=== PATIENT | female | born 1950 | race Caucasian/White ===

== ENCOUNTER 2016-05-10 14:11 | Inpatient (IN) | payer MEDICARE, BC ==
[~2016-05-10] VITALS: Ht 167.6 cm; Wt 86.2 kg
[2016-05-10] VITALS (8 sets, daily range): BP systolic 108–146; BP diastolic 69–100
--- NOTE | ~2016-05-10 | CON ---
[place], [place] REPORT OF CONSULTATION NAME: [facility]SE RAMON [facility]EDERSEN [id number] UNIT #: [id number] ROOM: 424 DOCTOR: TONI NUNEZ MD BIRTHDATE: [birth year] DOS: 05/11/2016 HISTORY OF PRESENT ILLNESS: This is a 65-year-old -[place] woman with a history of atrial flutter. She had electrical cardioversion 3 times in all and was on amiodarone for a short time many years ago. She was taken off of warfarin and she had an embolic stroke and had a hemorrhage within the infarction and spent several weeks in [place] quite a long time ago, I had seen her in this hospital in 2010. At that time, she was admitted because of atrial flutter and rapid ventricular rate. She was electrically cardioverted at that time and was on Pradaxa 150 b.i.d. She had atrial flutter ablation about 6 years ago in [place] where she had been living and was kept on Pradaxa for couple of years and then was discontinued. She has had the spinning sensation on and off for quite sometime but on the day of this admission, she had intense spinning sensation and quite a bit of nausea, but did not sweat. She did not fall and a friend who is a nurse, checked her out and found her heart rate is rather fast. She came to the Emergency Department where an ECG demonstrated atrial flutter with a ventricular rate of 133 beats per minute. She was not aware of her heart beating irregularly or fast and said she has never felt this previously. There has not been any undue shortness of breath, exertional shortness of breath or orthopnea. No swelling of the lower extremities. She has not had any neurological symptoms other than the spinning sensation. She does not smoke nor does she drink alcoholic beverages and lives with her . HOME MEDICATIONS: Included aspirin 81 daily, atorvastatin 20 daily, Lamictal b.i.d., metformin 500 b.i.d., omeprazole 40 daily, sotalol 80 mg b.i.d. and levetiracetam 250 mg b.i.d. When she was admitted, she was found to have atrial flutter with a 2:1 AV conduction, rate 133 beats per minute. She was placed on Cardizem drip and a few hours ago, she developed asystole and that lasted 7.2 seconds. She felt lightheaded, but did not pass out. Once rhythm came back, she was found to be in sinus bradycardia and which she is in at this time. PHYSICAL EXAMINATION: GENERAL: This revealed the patient who is very pleasant, alert, oriented, normal complexion, no thyromegaly, finger clubbing. VITAL SIGNS: Pulse is 56, regular, blood pressure 118/75. NECK: Normal JVP. No murmurs are present. There is no rub. Good pedal pulses and no edema in the lower extremities. RESPIRATORY: Lungs are clear to percussion and auscultation. ABDOMEN: Supple, nontender. IMPRESSION: This patient has had atrial flutter on and off for over 10 years and has had 3 electrical cardioversions then atrial flutter ablation done about 6 years ago. Now, she had asymptomatic atrial flutter with the rapid ventricular rate i.e. 2:1 AV conduction. IV Cardizem had induced asystole, which was discontinued and she is now in sinus bradycardia. QT interval appears normal. [place], [place] REPORT OF CONSULTATION NAME: JOSE RAMON PEDERSEN UNIT #: [id number] ROOM: 424 DOCTOR: TONI NUNEZ MD BIRTHDATE: [birth year] RECOMMENDATIONS: I agree with discontinuing Cardizem altogether. If her heart rate speeds up, I would increase the dose of sotalol to 120 mg every 12 hours. Her ERUM score is high, namely age, hypertension, and diabetes; therefore, long-term use of Pradaxa 150 b.i.d. or equivalent is strongly recommended. I discussed my assessment and recommendations with the patient and her and daughter. TONI NUNEZ MD CM:CONSTR:REPORT OF CONSULTATION 43 05/12/16 0242 interface
--- NOTE | ~2016-05-10 | PR ---
[place], [place] PROGRESS NOTE [id number] UNIT #: [id number] ROOM: 424 DOCTOR: JULIANNA SAPP MD BIRTHDATE: [birth year] DOS: 05/12/2016 SUBJECTIVE: 24 hours events noted. Discussed with the nursing staff. The patient was seen by Dr. Carr yesterday. The patient's medications have been adjusted. She is staying in sinus rhythm. PHYSICAL EXAMINATION: VITAL SIGNS: Heart rate 57, blood pressure is 120/80. HEENT: Unremarkable. NECK: Supple, no JVD. LUNGS: Clear. HEART: Sounds are regular. ABDOMEN: Soft. NEUROLOGIC: Stable. LABORATORY DATA: Hemoglobin 13, hematocrit 25.5. Electrolytes are normal. Creatinine is 1.2. IMPRESSION: Paroxysmal atrial fibrillation, back into sinus rhythm. PLAN: Medications have been adjusted. Agree with anticoagulation because her CHADS score is high. The patient has been started on Pradaxa. Continue the sotalol as ordered. Monitor the QT interval regularly and we will follow up. JULIANNA SAPP MD CM:PNTRANS [id number] JULIANNA SAPP MD 05/12/16 2328 interface
[~2016-05-10 14:11] MED LIST: AVPAK LEVETIRA PO; DEXILANT60 MG PO; DIOVAN160 MG PO; LAMICTAL150 MG PO; LIPITOR20 MG PO; METFORMIN500 MG PO; PRADAXA150 MG PO
[2016-05-10] MEDS ORDERED: GLUCOPHAGE1000 MG PO (14:18)
[2016-05-10] MEDS ORDERED: SOTALOL80 MG PO (14:18)
[2016-05-10] MEDS ORDERED: LIPITOR20 MG PO (14:19)
[2016-05-10] MEDS ORDERED: ASPIRIN CHILDRE81 MG PO (14:19)
[2016-05-10] MEDS ORDERED: OMEPRAZOLE40 MG PO (14:19)
[2016-05-10 14:41] LABS: BASO % 0.4 % (0.0-1.0); EOS # 0.1 10*3/uL (0.0-0.4); EOS % 1.3 % (1.0-4.0); HEMATOCRIT 43.9 % (37.0-47.0); HEMOGLOBIN 14.3 g/dl (12.0-16.0); LYMPH # 1.9 10*3/uL (1.3-4.4); LYMPH % 22.8 % (27.0-41.0); MEAN CELL VOLUME 90.5 fl (81.0-99.0); MEAN CORPUSCULAR HGB 29.5 pg (27.0-31.0); MEAN CORPUSCULAR HGB CONC 32.6 g/dl (33.0-37.0); MEAN PLATELET VOLUME 9.5 fl (9.6-12.3); MONO # 0.4 10*3/uL (0.1-1.0); MONO % 4.9 % (3.0-9.0); NEUT # 5.8 10*3/uL (2.3-7.9); NEUT % 70.2 % (47.0-73.0); PLATELET COUNT AUTOMATED 279 10*3/uL (130-400); RED BLOOD COUNT 4.85 10*6/uL (4.10-5.10); WHITE BLOOD COUNT 8.2 10*3/uL (4.8-10.8)
[2016-05-10 14:50] LABS: PROTHROMBIN TIME 10.3 SECONDS (9.0-12.4)
[2016-05-10 14:58] LABS: ALBUMIN 3.9 gm/dl (3.1-4.5); BILIRUBIN, TOTAL 0.4 mg/dl (0.2-1.0); MAGNESIUM 2.1 mg/dL (1.5-2.1); POTASSIUM 4.4 mmol/L (3.5-5.1); TOTAL PROTEIN 7.9 gm/dL (6.4-8.2)
[2016-05-10 15:47] LABS: BILIRUBIN NEGATIVE (NEGATIVE); BLOOD NEGATIVE (NEGATIVE); CLARITY CLEAR (CLEAR); COLOR YELLOW (YELLOW); GLUCOSE NEGATIVE (NEGATIVE); KETONE NEGATIVE (NEGATIVE); LEUKO ESTERASE NEGATIVE (NEGATIVE); NITRITE NEGATIVE (NEGATIVE); PH 5.5 (5.0-9.0); PROTEIN TRACE (NEGATIVE); SPECIFIC GRAVITY 1.025 (1.005-1.030)
[2016-05-10 16:04] LABS: BACTERIA TRACE; EPITHELIAL CELLS 30-35; URINE REFLEX COMMENT NO (NO); WBC 0-2 wbc/hpf (0-5)
[2016-05-10 18:21] LABS: CPK 43 U/L (26-192)
[2016-05-10 18:23] LABS: CKMB < 0.5 ng/ml (0.5-3.6); TROPONIN I < 0.015 ng/ml (<0.045)
[2016-05-11] VITALS (8 sets, daily range): BP systolic 94–126; BP diastolic 60–75
[2016-05-11 00:57] LABS: CPK 41 U/L (26-192)
[2016-05-11 00:58] LABS: CKMB < 0.5 ng/ml (0.5-3.6); TROPONIN I < 0.015 ng/ml (<0.045)
[2016-05-11 06:31] LABS: BASO % 0.4 % (0.0-1.0); EOS # 0.2 10*3/uL (0.0-0.4); HEMATOCRIT 39.7 % (37.0-47.0); LYMPH # 2.1 10*3/uL (1.3-4.4); LYMPH % 27.6 % (27.0-41.0); MEAN CORPUSCULAR HGB 29.5 pg (27.0-31.0); MEAN CORPUSCULAR HGB CONC 32.7 g/dl (33.0-37.0); MEAN PLATELET VOLUME 9.3 fl (9.6-12.3); MONO # 0.6 10*3/uL (0.1-1.0); MONO % 7.5 % (3.0-9.0); NEUT # 4.7 10*3/uL (2.3-7.9); NEUT % 61.1 % (47.0-73.0); PLATELET COUNT AUTOMATED 250 10*3/uL (130-400); RED BLOOD COUNT 4.41 10*6/uL (4.10-5.10); RED CELL DISTRI WIDTH 13.1 % (0-14.5); WHITE BLOOD COUNT 7.7 10*3/uL (4.8-10.8)
[2016-05-11 06:57] LABS: ALBUMIN 3.4 gm/dl (3.1-4.5); BILIRUBIN, TOTAL 0.3 mg/dl (0.2-1.0); MAGNESIUM 2.2 mg/dL (1.5-2.1); PHOSPHOROUS 3.3 mg/dL (2.5-4.9); PROTHROMBIN TIME 10.4 SECONDS (9.0-12.4)
[2016-05-11 07:03] LABS: FREE T4 1.35 ng/dl (0.76-1.46); THYROID STIM HORMONE (HS) 2.24 uIU/ml (0.358-4.75); TOTAL PROTEIN 6.9 gm/dL (6.4-8.2)
[2016-05-11 07:08] LABS: CKMB 0.6 ng/ml (0.5-3.6); CPK 42 U/L (26-192)
[2016-05-11 07:14] LABS: HEMOGLOBIN A1c 6.3 % (4.8-5.6)
[2016-05-11 07:28] LABS: FOLIC ACID 21.5 ng/mL (>5.38)
[2016-05-11 07:31] LABS: TROPONIN I < 0.015 ng/ml (<0.045)
[2016-05-11 11:02] LABS: VITAMIN D, 25-HYDROXY 26.1 ng/mL (30-100)
[2016-05-12] VITALS: BP 125/81
[2016-05-12 08:00] VITALS: BP 141/62
[2016-05-12 12:00] VITALS: BP 136/85
[2016-05-12] MEDS ORDERED: PRADAXA150 MG PO (13:08)
[2016-05-12] MEDS ORDERED: D-1000 185 MG-11 TAB PO (13:08)
== END 2016-05-12 15:33 | disposition home or self-care (01) | DRG 308 ==
LOC: ED 14:11 → EDHOLD 15:25 → 4E 15:25
PROVIDERS: Internal Medicine; Nurse Practitioner Family
DX: I48.0 Paroxysmal atrial fibrillation (principal); N17.0 Acute kidney failure with tubular necrosis; I48.92 Unspecified atrial flutter; I10 Essential (primary) hypertension; E78.5 Hyperlipidemia, unspecified; K21.9 Gastro-esophageal reflux disease without esophagitis; E11.65 Type 2 diabetes mellitus with hyperglycemia; I34.0 Nonrheumatic mitral (valve) insufficiency; I07.1 Rheumatic tricuspid insufficiency; G40.909 Epilepsy, unspecified, not intractable, without status epilepticus; Z86.73 Personal history of transient ischemic attack (TIA), and cerebral infarction without residual deficits; Z86.718 Personal history of other venous thrombosis and embolism; Z90.49 Acquired absence of other specified parts of digestive tract; Z79.01 Long term (current) use of anticoagulants; Z98.51 Tubal ligation status; Z82.5 Family history of asthma and other chronic lower respiratory diseases; Z84.1 Family history of disorders of kidney and ureter; Z79.82 Long term (current) use of aspirin; Z79.84 Long term (current) use of oral hypoglycemic drugs; Z79.899 Other long term (current) drug therapy

== ENCOUNTER → 2016-05-19 | Outpatient (CLI) | payer BC ==
[~2016-05-19] MED LIST changes: +ASPIRIN CHILDRE81 MG PO; +D-1000 185 MG-11 TAB PO; +GLUCOPHAGE1000 MG PO; +OMEPRAZOLE40 MG PO; +SOTALOL80 MG PO
== END | disposition home or self-care (01) ==
LOC: MRI 10:26
DX: I48.91 Unspecified atrial fibrillation (principal); R56.9 Unspecified convulsions

== ENCOUNTER → 2016-06-09 | Outpatient (CLI) | payer BC ==
[2016-06-09 12:11] LABS: BASO % 0.5 % (0.0-1.0); EOS # 0.3 10*3/uL (0.0-0.4); EOS % 5.1 % (1.0-4.0); HEMATOCRIT 38.7 % (37.0-47.0); HEMOGLOBIN 12.7 g/dl (12.0-16.0); LYMPH % 34.4 % (27.0-41.0); MEAN CELL VOLUME 92.1 fl (81.0-99.0); MEAN CORPUSCULAR HGB 30.2 pg (27.0-31.0); MEAN CORPUSCULAR HGB CONC 32.8 g/dl (33.0-37.0); MEAN PLATELET VOLUME 9.9 fl (9.6-12.3); MONO # 0.5 10*3/uL (0.1-1.0); MONO % 7.6 % (3.0-9.0); NEUT # 3.1 10*3/uL (2.3-7.9); NEUT % 52.2 % (47.0-73.0); PLATELET COUNT AUTOMATED 206 10*3/uL (130-400); RED CELL DISTRI WIDTH 13.2 % (0-14.5); WHITE BLOOD COUNT 5.9 10*3/uL (4.8-10.8)
[2016-06-09 13:08] LABS: FOLIC ACID > 24.00 ng/mL (>5.38)
== END | disposition home or self-care (01) ==
LOC: LAB 11:41
PROVIDERS: Family Medicine
DX: G62.9 Polyneuropathy, unspecified (principal); R42 Dizziness and giddiness; Z72.89 Other problems related to lifestyle

== ENCOUNTER → 2016-06-16 | Outpatient (CLI) | payer BC | END | disposition home or self-care (01) | LOC: CP 11:00 | DX: R56.9 Unspecified convulsions (principal) ==

== ENCOUNTER 2016-12-16 23:29 | Emergency (ER) | payer BC ==
[~2016-12-16] VITALS: Wt 72.6 kg
[2016-12-17 01:17] LABS: BASO % 0.3 % (0.0-1.0); EOS # 0.1 10*3/uL (0.0-0.4); EOS % 0.8 % (1.0-4.0); HEMATOCRIT 40.5 % (37.0-47.0); HEMOGLOBIN 13.1 g/dl (12.0-16.0); LYMPH # 0.8 10*3/uL (1.3-4.4); LYMPH % 10.5 % (27.0-41.0); MEAN CELL VOLUME 91.4 fl (81.0-99.0); MEAN CORPUSCULAR HGB 29.6 pg (27.0-31.0); MEAN CORPUSCULAR HGB CONC 32.3 g/dl (33.0-37.0); MEAN PLATELET VOLUME 9.8 fl (9.6-12.3); MONO # 0.3 10*3/uL (0.1-1.0); MONO % 4.1 % (3.0-9.0); NEUT # 6.7 10*3/uL (2.3-7.9); NEUT % 83.9 % (47.0-73.0); PLATELET COUNT AUTOMATED 185 10*3/uL (130-400); RED BLOOD COUNT 4.43 10*6/uL (4.10-5.10); RED CELL DISTRI WIDTH 13.2 % (0-14.5)
[2016-12-17 01:26] LABS: INTERNATIONAL NORM RATIO 1.4 (2.0-3.5)
[2016-12-17 01:34] LABS: ALBUMIN 3.6 gm/dl (3.1-4.5); CREATININE 1.16 mg/dL (0.55-1.02); POTASSIUM 3.8 mmol/L (3.5-5.1); TOTAL PROTEIN 7.1 gm/dL (6.4-8.2)
[2016-12-17 01:41] LABS: TROPONIN I 0.24 ng/ml (<0.045)
== END 2016-12-17 04:59 | disposition short-term general hospital (02) ==
LOC: ED 23:29
PROVIDERS: Emergency Medicine Emergency Medical Services
DX: R41.82 Altered mental status, unspecified (principal); R42 Dizziness and giddiness; Z98.51 Tubal ligation status; Z90.49 Acquired absence of other specified parts of digestive tract; Z79.82 Long term (current) use of aspirin; Z79.899 Other long term (current) drug therapy; Z86.73 Personal history of transient ischemic attack (TIA), and cerebral infarction without residual deficits; Z95.0 Presence of cardiac pacemaker

== ENCOUNTER → 2017-06-04 | Outpatient (CLI) | payer BC | END | disposition home or self-care (01) | LOC: RAD 08:22 | DX: Z01.818 Encounter for other preprocedural examination (principal); I51.7 Cardiomegaly; N28.89 Other specified disorders of kidney and ureter; I10 Essential (primary) hypertension; E11.9 Type 2 diabetes mellitus without complications; Z95.5 Presence of coronary angioplasty implant and graft ==

== ENCOUNTER 2018-03-22 21:30 | Inpatient (IN) | payer MEDICARE, BC ==
[~2018-03-22] VITALS: Ht 167.6 cm; Wt 78.0 kg
--- NOTE | ~2018-03-22 | EKG ---
[place], [place] ELECTROCARDIOGRAM REPORT NAME: JOSE RAMON PEDERSEN UNIT #: [id number] ROOM: 402 DOCTOR: LING DRAFT REPORT BIRTHDATE: [birth year] [facility] Test Date: 2018-03-22 Test Time: 21:44:36 Pat Name: JOSE RAMON PEDERSEN Department: Room: 402 Gender: F Room Service Waiter/Waitress: Sheila Shafer : 1950 Requested By: JOSE BRITO Order Number: [id number] Reading MD: Sari Snider Measurements Intervals [place] Rate: 75 P: [place]: QRS: -67 QRSD: 168 T: 86 QT: 493 QTc: 551 Interpretive Statements Atrial flutter Ventricular-paced Baseline wander in lead(s) I,III,aVR,aVL,V1 Electronically Signed On 03-25-2018 12:40:06 PST by Sari Snider CM:EKGRPT:ELECTROCARDIOGRAM REPORT 1240 JOSE SALDIVAR DRAFT REPORT JOSE BRITO DO
--- NOTE | ~2018-03-22 | EKG ---
[place], [place] ELECTROCARDIOGRAM REPORT NAME: JOSE RAMON PEDERSEN UNIT #: [id number] ROOM: 402 DOCTOR: LING DRAFT REPORT BIRTHDATE: [birth year] [facility] Test Date: 2018-03-23 Test Time: 01:50:40 Pat Name: JOSE RAMON PEDERSEN Department: Room: 402 2 Gender: F Configuration Management Advisor: Felix Johnson : 1950 Requested By: ABA ISBELL Order Number: [id number] Reading MD: Sari Snider Measurements Intervals [place] Rate: 75 P: [place]: QRS: -76 QRSD: 170 T: 97 QT: 462 QTc: 517 Interpretive Statements Afib/flutter Ventricular-paced Electronically Signed On 03-25-2018 12:41:38 PST by Sari Snider CM:EKGRPT:ELECTROCARDIOGRAM REPORT 0150 1241 ABA ISBELL EPIPHANY DRAFT REPORT ABA ISBELL
--- NOTE | ~2018-03-22 | EKG ---
[place], [place] ELECTROCARDIOGRAM REPORT NAME: JOSE RAMON PEDERSEN UNIT #: [id number] ROOM: 402 DOCTOR: LING DRAFT REPORT BIRTHDATE: [birth year] [facility] Test Date: 2018-03-23 Test Time: 03:21:41 Pat Name: JOSE RAMON PEDERSEN Department: Room: 402 2 Gender: F Surgeon Partner: Sophy Bob : 1950 Requested By: ABA ISBELL Order Number: [id number] Reading MD: Sari Snider Measurements Intervals [place] Rate: 75 P: [place]: QRS: -72 QRSD: 174 T: 87 QT: 475 QTc: 531 Interpretive Statements Afib/flutter Ventricular-paced rhythm Electronically Signed On 03-25-2018 12:42:33 PST by Sari Snider CM:EKGRPT:ELECTROCARDIOGRAM REPORT 0321 1242 ABA DUBON DRAFT REPORT ABA ISBELL
--- NOTE | ~2018-03-22 | CON ---
[place], [place] REPORT OF CONSULTATION NAME: [facility]EN [id number] UNIT #: [id number] ROOM: 402 DOCTOR: TONI NUNEZ MD BIRTHDATE: [birth year] DOS: 03/24/2018 HISTORY OF PRESENT ILLNESS: This is a 68-year-old -French woman with a history of atrial flutter. She had electrical cardioversion done long time ago and while in [place], had atrial flutter ablation. Her anticoagulation was stopped a couple of years later and she eventually had an embolic stroke and I saw her here in 05/2016 and she was at that time in atrial flutter, anticoagulation was restarted. She had a pacemaker implanted by Dr. Araya a year or so ago because of I believe tachy-bradycardia. She has remained in atrial flutter. A long time ago, she had an echocardiogram in this hospital, which was read by Dr. Araya documenting an EF of about 45%. She also has chronic kidney disease with creatinine around 2 or so, DVT, GERD, hyperlipidemia, essential hypertension, iron deficiency anemia, seizure disorder, and has had a cholecystectomy and nephrectomy. She was admitted to the hospital because of shortness of breath of 2-3 days' duration along with fatigue and tiredness. She did not have any palpitations. She has never had palpitations even when her heart was beating very fast. She had no fever, chills, or cough. No chills. She was given a dose of furosemide on admission and she has improved. She no longer has shortness of breath. There had not been any chest pain or swelling of the lower extremities. HOME MEDICATIONS: Include apixaban/Eliquis 5 mg b.i.d., atorvastatin 20 daily, carvedilol 3.125 mg b.i.d., ferrous sulfate 325 daily, Lamictal 200 mg b.i.d., and losartan 25 mg daily. PHYSICAL EXAMINATION: GENERAL: This reveals a patient who is very pleasant, alert, and oriented. She is very comfortable. Her complexion is fine. She is not in any distress. VITAL SIGNS: Temperature is normal. Pulse is 75 and regular, blood pressure 129/81 and had been higher. NECK: JVP was normal with a negative AJR. No bruit in the neck. HEART: There is no cardiomegaly. Cardiac auscultation revealed grade 2/6 pansystolic murmur over the apex. EXTREMITIES: No edema at all in the lower extremities. Excellent pedal pulses. LUNGS: Clear to percussion and auscultation with excellent breath sounds. LABORATORY DATA: ECG showed atrial flutter with ventricular pacing. I reviewed the chest x-ray of admission. It did not demonstrate pulmonary edema. BUN is 37, creatinine 2.23, potassium 4.0, and hemoglobin 13 g/dL. An echocardiogram was done yesterday, which I read. It demonstrated an LV ejection fraction of 35%. Moderately dilated left atrium and mild to moderately dilated right atrium with moderate mitral regurgitation and moderate tricuspid regurgitation. Mild pulmonary hypertension was also present. IMPRESSION: This patient has a moderate cardiomyopathy, reason is not clear. [place], [place] REPORT OF CONSULTATION NAME: JOSE RAMON PEDERSEN UNIT #: [id number] ROOM: 402 DOCTOR: TONI NUNEZ MD BIRTHDATE: [birth year] She has never had a diagnostic heart catheterization to exclude coronary artery disease as a cause of this. There is no evidence of cardiac decompensation clinically or on chest x-ray. Increasing shortness of breath may have been from increase in heart rate. RECOMMENDATIONS: The patient's beta meghan needs to be increased as far as tolerated because of cardiomyopathy. If possible, a dose of losartan should also be increased while monitoring renal function. An echocardiogram needs to be repeated in about 3 months to reassess LV systolic function. If EF is below 35%, she probably will require an AICD implantation. I thank you on behalf of Dr. Araya for this consult. TONI NUNEZ MD CM:CONSTR:REPORT OF CONSULTATION 1213 04/01/18 0958 interface JULIANNA ARAYA MD
[~2018-03-22 21:30] MED LIST changes: +OMEPRAZOLE D/R20 MG PO; -OMEPRAZOLE40 MG PO
[2018-03-22 21:35] VITALS: BP 161/88
[2018-03-22 21:50] VITALS: BP 147/79
[2018-03-22 21:51] LABS: BASO % 0.5 % (0.0-1.0); EOS % 0.4 % (1.0-4.0); HEMOGLOBIN 12.7 g/dl (12.0-16.0); LYMPH # 1.7 10*3/uL (1.3-4.4); LYMPH % 22.4 % (27.0-41.0); MEAN CELL VOLUME 97.3 fl (81.0-99.0); MEAN CORPUSCULAR HGB 31.7 pg (27.0-31.0); MEAN CORPUSCULAR HGB CONC 32.6 g/dl (33.0-37.0); MEAN PLATELET VOLUME 10.1 fl (9.6-12.3); MONO # 0.6 10*3/uL (0.1-1.0); MONO % 8.2 % (3.0-9.0); NEUT # 5.1 10*3/uL (2.3-7.9); NEUT % 68.2 % (47.0-73.0); PLATELET COUNT AUTOMATED 186 10*3/uL (130-400); RED BLOOD COUNT 4.01 10*6/uL (4.10-5.10); RED CELL DISTRI WIDTH 14.9 % (0-14.5); WHITE BLOOD COUNT 7.5 10*3/uL (4.8-10.8)
[2018-03-22 21:59] LABS: ACT PARTIAL THROMBO TIME 26.6 SECONDS (20.8-31.5); INTERNATIONAL NORM RATIO 1.1 (2.0-3.5)
[2018-03-22] MEDS ORDERED: ELIQUIS5 M1 PO (22:06)
[2018-03-22] MEDS ORDERED: FEROSUL325 MG PO (22:06)
[2018-03-22] MEDS ORDERED: LOSARTAN POTASS25 M1 PO (22:06)
[2018-03-22 22:07] LABS: BILIRUBIN 1+ (NEGATIVE); BLOOD 2+ (NEGATIVE); CLARITY SL CLOUDY (CLEAR); COLOR YELLOW (YELLOW); GLUCOSE NEGATIVE (NEGATIVE); KETONE NEGATIVE (NEGATIVE); LEUKO ESTERASE NEGATIVE (NEGATIVE); NITRITE NEGATIVE (NEGATIVE); PH 5.5 (5.0-9.0); SPECIFIC GRAVITY >= 1.030 (1.005-1.030)
[2018-03-22 22:10] LABS: ALBUMIN 3.9 gm/dl (3.1-4.5); CREATININE 2.01 mg/dL (0.55-1.02); POTASSIUM 4.2 mmol/L (3.5-5.1); TOTAL PROTEIN 7.1 gm/dL (6.4-8.2); TROPONIN I 0.039 ng/ml (<0.045)
[2018-03-22 22:17] LABS: WBC TNTC wbc/hpf (0-5)
[2018-03-22 22:19] LABS: RBC 21-30 rbc/hpf (0-2)
[2018-03-22 22:20] VITALS: BP 138/86
[2018-03-22 22:20] LABS: BACTERIA 3+; CALCIUM OXALATE CRYSTALS 2+
--- NOTE | 2018-03-22 22:46 | NUR ---
PATIENT IN BED AWAKE AND TALKING WITH FAMILY AT BEDSIDE.. NO DISTRESS NOTED. VSS.. RN WILL CONT TO MONITOR
[2018-03-22 23:18] VITALS: BP 157/91
[2018-03-23 00:35] VITALS: BP 130/88
--- NOTE | 2018-03-23 00:35 | NUR ---
A 67, admitted to , under the services of LUCILA Olivares DO with a diagnosis of SOB,ARF,GENERALIZED WEAKNESS. Chief complaint is C/O SOB WITH INCREASED WEAKNESS, FATIGUE, NASUEA, COUGH FOR FEW DAYS. Patient arrived via stretcher from ER. Monitor applied. Initial assessment completed. Vital signs taken and recorded. LUCILA OLIVARES DO notified of admission to the unit. Orders received. See assessment for past medical history, medications and allergies. Patient and/or family oriented to unit. [facility] visitation policy reviewed. Clothing/patient valuable form completed. SHLOMO OWUSU
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
--- NOTE | 2018-03-23 01:32 | NUR ---
CRITICAL TROPONIN CALLED TO DR Anamaria GARRETT AND NO NEW ORDERS AT THIS TIME
--- NOTE | 2018-03-23 01:35 | NUR ---
PT. POOR HISTORIAN BECAUSE OF OLD STROKE PER PT SHE HAS TROUBLE WITH THINGS LIKE REMEMBERING HER MEDS AND THAT'S WHY HER AND DAUGHTER TAKE CARE OF THAT.DR. Allyn KOHLER NOTIFIED OF NOT ABLE TO VERIFY HOME MEDICATIONS.
--- NOTE | 2018-03-23 04:28 | NUR ---
NOTIFIED DR. POSADA OF PT. OUTPUT SO FAR AND LAST TROPONIN LEVEL.
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
[2018-03-23 06:39] LABS: BASO % 0.5 % (0.0-1.0); EOS # 0.1 10*3/uL (0.0-0.4); EOS % 1.1 % (1.0-4.0); HEMATOCRIT 38.3 % (37.0-47.0); HEMOGLOBIN 12.5 g/dl (12.0-16.0); LYMPH # 1.5 10*3/uL (1.3-4.4); LYMPH % 20.1 % (27.0-41.0); MEAN CORPUSCULAR HGB 31.6 pg (27.0-31.0); MEAN CORPUSCULAR HGB CONC 32.6 g/dl (33.0-37.0); MEAN PLATELET VOLUME 10.4 fl (9.6-12.3); MONO # 0.6 10*3/uL (0.1-1.0); MONO % 8.4 % (3.0-9.0); NEUT # 5.2 10*3/uL (2.3-7.9); NEUT % 69.6 % (47.0-73.0); PLATELET COUNT AUTOMATED 170 10*3/uL (130-400); RED BLOOD COUNT 3.95 10*6/uL (4.10-5.10); WHITE BLOOD COUNT 7.5 10*3/uL (4.8-10.8)
[2018-03-23 07:00] LABS: ALBUMIN 3.5 gm/dl (3.1-4.5); CREATININE 2.06 mg/dL (0.55-1.02); POTASSIUM 4.4 mmol/L (3.5-5.1); TOTAL PROTEIN 6.7 gm/dL (6.4-8.2)
--- NOTE | 2018-03-23 07:19 | NUR ---
CALLED DR. RANGEL ANSWERING SERVICE AND CONSULT INFORMATION GIVEN.
[2018-03-23] MEDS ORDERED: LAMICTAL200 MG PO (07:37)
[2018-03-23] MEDS ORDERED: MULTIVITAMINS1 EAC5 PO (07:39)
--- NOTE | 2018-03-23 07:40 | NUR ---
PATIENT'S DAUGHTER BROUGHT IN MED LIST FROM HOME. MED REC UPDATED PER POLICY.
[2018-03-23 08:00] VITALS: BP 150/82
--- NOTE | 2018-03-23 08:12 | NUR ---
PATIENT RESTING QUIETLY IN BED. RESPIRATIONS EASY, REGULAR ON RA. DENIES ANY SOB. DAUGHTER AT BEDSIDE. NO VOICED COMPLAINTS AT THIS TIME. WILL MONITOR. CALL LIGHT WITHIN REACH.
--- NOTE | 2018-03-23 08:30 | NUR ---
Warehouse Order Puller in to talk to patient. Patient states lives at home with her . There are 1-2 steps in the home. Physician: Dr. Shady Cole Pharmacy: [facility] Home health services: none Patient's level of ADLs: INDEPENDENT Patient has working utilities: yes DME: none Follow-up physician's appointment after d/c: will be made by the hospitalist nurse director upon discharge Does patient want to access PORTAL?: no Discharge plan discussed with patient and family who is at the bedside. She lives at home with her . She is independent in her ADLs and ambulation. Discussed home health care services and she denies any home needs at this time. She brought up getting a portable small not the tank O2 as she has a friend that has one. When questioned if she has O2 at home, she denies. Discussed she would need qualified for home O2 and qualified for the small O2 tank. She and the family member verbalized an understanding. When medically stable she will be discharged to home. SIMEON LEWIS
--- NOTE | 2018-03-23 08:33 | NUR ---
RETURNED CALL AND AWARE OF CONSULT. WILL SEE PATIENT THIS AFTERNOON.
--- NOTE | 2018-03-23 09:50 | NUR ---
Dr. Nguyen notified of wound care recommendations.
--- NOTE | 2018-03-23 10:20 | NUR ---
IN TO SEE PATIENT.
--- NOTE | 2018-03-23 10:59 | NUR ---
Occupational Therapy referral received and screen completed. Patient reports that she is independent in all ADLs, functional mobility. Patient does not feel that any OT is indicated at this time. Discharge OT referral. Anais Gomez OTR/[place]
--- NOTE | 2018-03-23 11:51 | NUR ---
ATTEMPTED TO REACH VIA ANSWERING SERVICE REGARDING CONSULT. UNABLE TO LEAVE VOICEMAIL ON HIS CELL PHONE. WILL TRY AGAIN.
[2018-03-23 12:00] VITALS: BP 142/80
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
[2018-03-23 16:00] VITALS: BP 132/84
--- NOTE | 2018-03-23 19:07 | NUR ---
ALERT AND ORIENTED X 3. VISITING WITH FAMILY NO DISTRESS NOTED.
[2018-03-23 20:00] VITALS: BP 130/73
--- NOTE | 2018-03-23 22:39 | NUR ---
24 HR chart check completed.
[2018-03-24] VITALS: BP 121/57
--- NOTE | 2018-03-24 03:26 | NUR ---
SLEEPING NO DISTRESS NOTED.
--- NOTE | 2018-03-24 04:30 | NUR ---
Recommend follow up for wound care in outpatient setting patient refused at this time.
[2018-03-24 07:18] LABS: BASO # 0.1 10*3/uL (0.0-0.1); BASO % 0.6 % (0.0-1.0); EOS # 0.4 10*3/uL (0.0-0.4); EOS % 4.7 % (1.0-4.0); HEMATOCRIT 39.8 % (37.0-47.0); LYMPH # 2.3 10*3/uL (1.3-4.4); LYMPH % 27.7 % (27.0-41.0); MEAN CELL VOLUME 97.1 fl (81.0-99.0); MEAN CORPUSCULAR HGB 31.7 pg (27.0-31.0); MEAN CORPUSCULAR HGB CONC 32.7 g/dl (33.0-37.0); MEAN PLATELET VOLUME 10.2 fl (9.6-12.3); MONO # 0.8 10*3/uL (0.1-1.0); MONO % 9.5 % (3.0-9.0); NEUT # 4.7 10*3/uL (2.3-7.9); NEUT % 57.3 % (47.0-73.0); PLATELET COUNT AUTOMATED 197 10*3/uL (130-400); WHITE BLOOD COUNT 8.1 10*3/uL (4.8-10.8)
[2018-03-24 07:34] LABS: ALBUMIN 3.5 gm/dl (3.1-4.5); CREATININE 2.23 mg/dL (0.55-1.02); FREE T4 1.53 ng/dl (0.76-1.46); PHOSPHOROUS 3.7 mg/dL (2.5-4.9); TOTAL PROTEIN 6.8 gm/dL (6.4-8.2)
[2018-03-24 07:39] LABS: THYROID STIM HORMONE (HS) 1.89 uIU/ml (0.358-4.75)
[2018-03-24 08:00] VITALS: BP 138/88
--- NOTE | 2018-03-24 08:14 | NUR ---
PATIENT RESTING QUIETLY IN BED. NO DISTRESS NOTED. RESPIRATIONS EASY, REGULAR ON RA. DENIES ANY SOB. DENIES ANY PAIN/DISCOMFORT AT THIS TIME. WILL CONTINUE TO MONITOR. VSS. CALL LIGHT WITHIN REACH.
--- NOTE | 2018-03-24 08:30 | NUR ---
Last Putter Away in to see patient. No new needs or request at this time. She denies any home needs. When medically stable she will be discharged to home.
--- NOTE | 2018-03-24 08:43 | NUR ---
ATTEMPTED TO REACH DR.NANDRA EDMOND CONSULT. NO ANSWER VIA CELL PHONE AND UNABLE TO LEAVE VOICE MAIL.
[2018-03-24 09:02] LABS: VITAMIN D, 25-HYDROXY 34.7 ng/mL (30-100)
--- NOTE | 2018-03-24 09:21 | NUR ---
RETURNED CALL AND AWARE OF CONSULT. WILL SEE PATIENT LATER TODAY.
--- NOTE | 2018-03-24 10:29 | NUR ---
HERE TO SEE PATIENT REGARDING CONSULT.
[2018-03-24] MEDS ORDERED: COREG3.125 MG PO (10:37)
[2018-03-24 12:00] VITALS: BP 129/81
--- NOTE | 2018-03-24 14:30 | NUR ---
Discharge instructions reviewed with patient/family. Patient receptive and verbalizes understanding. Follow-up care arranged. Written instructions given to patient/family. [facility] OLM[facility].
== END 2018-03-24 14:30 | disposition home or self-care (01) | DRG 682 ==
LOC: ED 21:30 → EDHOLD 23:27 → 4E 23:27
PROVIDERS: Internal Medicine; Student in an Organized Health Care Education/Training Program; ADMIT Internal Medicine
DX: N17.9 Acute kidney failure, unspecified (principal); I50.23 Acute on chronic systolic (congestive) heart failure; I48.92 Unspecified atrial flutter; I42.9 Cardiomyopathy, unspecified; I13.0 Hypertensive heart and chronic kidney disease with heart failure and stage 1 through stage 4 chronic kidney disease, or unspecified chronic kidney disease; D50.9 Iron deficiency anemia, unspecified; K21.9 Gastro-esophageal reflux disease without esophagitis; E78.5 Hyperlipidemia, unspecified; G40.909 Epilepsy, unspecified, not intractable, without status epilepticus; R73.9 Hyperglycemia, unspecified; E83.41 Hypermagnesemia; E80.6 Other disorders of bilirubin metabolism; R82.71 Bacteriuria; N18.3 Chronic kidney disease, stage 3 (moderate); E66.3 Overweight; Z86.73 Personal history of transient ischemic attack (TIA), and cerebral infarction without residual deficits; Z86.718 Personal history of other venous thrombosis and embolism; Z90.49 Acquired absence of other specified parts of digestive tract; Z90.5 Acquired absence of kidney; Z84.1 Family history of disorders of kidney and ureter; Z83.6 Family history of other diseases of the respiratory system; Z88.8 Allergy status to other drugs, medicaments and biological substances; Z95.0 Presence of cardiac pacemaker; Z68.28 Body mass index [BMI] 28.0-28.9, adult; Z79.899 Other long term (current) drug therapy

== ENCOUNTER 2021-02-06 14:04 | Emergency (ER) | payer BC ==
[~2021-02-06] VITALS: Wt 99.8 kg
[~2021-02-06 14:04] MED LIST changes: +COREG3.125 MG PO; +ELIQUIS5 M1 PO; +FEROSUL325 MG PO; +LAMICTAL200 MG PO; +LOSARTAN POTASS25 M1 PO; +MULTIVITAMINS1 EAC5 PO
[2021-02-06 15:06] LABS: HEMATOCRIT 40.7 % (37.0-47.0); MEAN CELL VOLUME 93.8 fl (81.0-99.0); MEAN CORPUSCULAR HGB 30.9 pg (27.0-31.0); MEAN CORPUSCULAR HGB CONC 32.9 g/dl (33.0-37.0); MEAN PLATELET VOLUME 9.6 fl (9.6-12.3); PLATELET COUNT AUTOMATED 154 10*3/uL (130-400); RED BLOOD COUNT 4.34 10*6/uL (4.10-5.10); RED CELL DISTRI WIDTH 13.1 % (0-14.5); WHITE BLOOD COUNT 3.6 10*3/uL (4.8-10.8)
[2021-02-06 15:17] LABS: INTERNATIONAL NORM RATIO 1.1 (2.0-3.5)
[2021-02-06 15:21] LABS: CREATININE 1.92 mg/dL (0.55-1.02); POTASSIUM 4.3 mmol/L (3.5-5.1); TOTAL PROTEIN 6.9 gm/dL (6.4-8.2)
[2021-02-06 15:24] LABS: ATYPICAL LYMPHS 1 % (0-0); TOTAL CELLS COUNTED 100 #CELLS
[2021-02-06 15:25] LABS: OVALOCYTES FEW; PLATELET SUFFICIENCY NORMAL (NORMAL)
[2021-02-06 15:49] LABS: BILIRUBIN Negative (Negative); BLOOD 1+ (Negative); CLARITY Turbid (Clear); COLOR Dark Yellow (Yellow); GLUCOSE Negative (Negative); KETONE Negative (Negative); LEUKO ESTERASE Trace (Negative); NITRITE Negative (Negative); PH 5.5 (4.5-8.0); SPECIFIC GRAVITY >= 1.030 (1.001-1.030)
[2021-02-06 15:57] LABS: BACTERIA 3+
[2021-02-06] MEDS ORDERED: SEPTDS PO (16:15)
== END 2021-02-06 17:08 | disposition home or self-care (01) ==
LOC: ED 14:04
PROVIDERS: Physician Assistant
DX: U07.1 COVID-19 (principal); N39.0 Urinary tract infection, site not specified; Z88.8 Allergy status to other drugs, medicaments and biological substances; Z79.899 Other long term (current) drug therapy